=== PATIENT | female | born 1995 | race Two or more races ===

== ENCOUNTER 2019-05-29 06:30 | Inpatient (IN) | payer MEDICAID ==
[2019-05-29] MEDS ORDERED: Sodium Chloride 0.9% 10 ML Syringe FLUSH PRN (09:17)
[2019-05-29] MEDS ORDERED: Carboprost Tromethamine 250 MCG/1 ML Amp IM PRN (09:17)
[2019-05-29] MEDS ORDERED: Water For Irrigation,Sterile 1,000 ML Container IRR PRN (09:17)
[2019-05-29] MEDS ORDERED: Methylergonovine 0.2 MG/1 ML Amp IM PRN (09:17)
[2019-05-29] MEDS ORDERED: Lidocaine 1% 50 ML MDV INJECT PRN (09:17)
[2019-05-29] MEDS ORDERED: Sodium Chloride 0.9% 10 ML SDV IV PRN (09:17)
[2019-05-29] MEDS ORDERED: Sodium Chloride 0.9% 2.5 ML Syringe FLUSH PRN (09:17)
[2019-05-29] MEDS ORDERED: Tranexamic Acid 1,000 MG in Sodium Chloride 0.9% 100 ML IV PRN (09:17)
[2019-05-29] MEDS ORDERED: Misoprostol 200 MCG Tab PO PRN (09:17)
--- NOTE | 2019-05-29 09:22 | PCM.LDHP ---
L&D History of Present Illness - General Date of Service: 05/29/19 Admit Problem/Dx: Patient Status Order with Admit Dx/Problem 05/29/19 06:34 Patient Status [ADT] Routine Admission Diagnosis/Problem Admission Diagnosis/Problem 05/29/19 09:15 23 yo EDC 05/27/2019 40 2/7wks, Hx of 26wk IUFD, A+, RI, GBS neg. NRFHT Source of Information: Patient History Limitations: Reports: No Limitations - History of Present Illness Improves with: Reports: None Worsens with: Reports: None Associated Symptoms: Reports: N - Related Data Allergies/Adverse Reactions: Allergies Allergy/AdvReac Type Severity Reaction Status Date / Time citric acid Allergy Difficulty Verified 05/07/19 16:57 Breathing Home Medications: Home Meds buPROPion [buPROPion XL] 150 mg PO BEDTIME 05/07/19 [History] hydrOXYzine HCl [Atarax] 25 mg PO Q6H PRN 05/07/19 [History] Past Medical History [employer] History: Reports: , Other (See Below) Other OB/BYN History: Abruption at 28 weeks previous - Infectious Disease History Infectious Disease History: Reports: None H&P Review of Systems - Review of Systems: Review Of Systems: See Below General: Reports: No Symptoms HEENT: Reports: No Symptoms Pulmonary: Reports: No Symptoms Cardiovascular: Reports: No Symptoms Gastrointestinal: Reports: No Symptoms Genitourinary: Reports: No Symptoms Musculoskeletal: Reports: No Symptoms Skin: Reports: No Symptoms Psychiatric: Reports: No Symptoms Neurological: Reports: No Symptoms Hematologic/Lymphatic: Reports: No Symptoms Immunologic: Reports: No Symptoms L&D Exam - Exam Exam: See Below - Vital Signs Weight: 92.986 kg - OB Specific Contraction Intensity: Mild Movement: Active Heart Tones: Present Heart Tones per Min: 145 (Cat II tracing) Heart Rate (FHR) Variability: Moderate (6-25 bmp) Presentation: Vertex - Renee Score Renee Score Cervix Position: Posterior Renee Score Consistency: Firm Renee Score Effacement: 51-70% Renee Score Dilation: 1-2 cm Renee Score Infant's Station: -2 Renee Score Total: 4 - Exam General: Alert, Oriented, Cooperative HEENT: Hearing Intact Lungs: Clear to Auscultation, Normal Respiratory Effort Cardiovascular: Regular Rate, Regular Rhythm, Normal S1, Normal S2 GI/Abdominal Exam: Soft, Non-Tender Rectal Exam: Deferred Genitourinary: Normal external exam, Normal bimanual exam, Cervical dilitation. No: Cervical fluid, Vaginal bleeding Back Exam: Normal Inspection, Full Range of Motion Extremities: Normal Inspection, Normal Range of Motion, Non-Tender, No Pedal Edema Skin: Warm, Dry, Intact Neurological: Cranial Nerves Intact, Strength Equal Bilateral, Normal Speech, Normal Tone, Sensation Intact - Problem List (1) Supervision of normal IUP (intrauterine ) in multigravida SNOMED Code(s): 952625058, 340545981, 649839013 ICD Code: Z34.80 - ENCOUNTER FOR SUPRVSN OF NORMAL , UNSP TRIMESTER Status: Acute Priority: High Current Visit: Yes Qualifiers: Trimester: third trimester Qualified Code(s): Z34.83 - Encounter for supervision of other normal , third trimester Problem List Initiated/Reviewed/Updated: Yes Orders Last 24hrs: Active Orders 24 hr Category Date Time Status Patient Status [ADT] Routine ADT 05/29/19 06:34 Active Non Stress Test [RC] PER UNIT ROUTINE Care 05/29/19 06:34 Active Up ad Regi [RC] ASDIRECTED Care 05/29/19 06:34 Active Vaginal Exam [RC] Click to Edit Care 05/29/19 06:34 Active Vital Signs [RC] PER UNIT ROUTINE Care 05/29/19 06:34 Active Resuscitation Status Routine Resus Stat 05/29/19 06:34 Ordered Assessment/Plan Comment:: Admit A: 23 yo EDC 05/27/2019 40 2/7wks, Hx of 26wk IUFD, A+, RI, GBS neg. NRFHT , 145bpm Cat II tracing, Occ ctx, SVE 2-3/70/-2 firm, post, intact P: Admit, pitocin for IOL, NRFHT Dr Murrieta updated
[2019-05-29] MEDS ORDERED: Oxytocin/0.9 % Sodium Chloride 30 UNIT/500 ML BAG IV SCH ×2 (09:30→12:00)
[2019-05-29] MEDS ORDERED: Terbutaline 1 MG/ML SDV SUBCUT PRN (11:55)
[2019-05-29] MEDS: Lactated Ringers 1,000 ML IV SCH ×2 (12:17→16:52)
[2019-05-29] MEDS: Nalbuphine 10 MG/1 ML Vial IVPUSH PRN ×2 (19:01→22:50)
[2019-05-30] MEDS ORDERED: Ropivacaine HCl/PF 100 ML ONE (02:36)
[2019-05-30] MEDS ORDERED: fentaNYL 100 MCG/2 ML SDV ONE (02:36)
--- NOTE | 2019-05-30 03:00 | PCM.PREANE ---
Preanesthetic Assessment - Anesthesia/Transfusion/Family Hx Anesthesia History: Prior Anesthesia Without Reaction Family History of Anesthesia Reaction: No Transfusion History: No Prior Transfusion(s) - Review of Systems General: No Symptoms Pulmonary: No Symptoms Cardiovascular: No Symptoms Gastrointestinal: No Symptoms Neurological: No Symptoms Other: Reports: None - Physical Assessment NPO Status Date: 05/29/19 NPO Status Time: 14:00 Height: 1.63 m Weight: 92.986 kg ASA Class: 1 Mental Status: Alert & Oriented x3 Dentition: Reports: Normal Dentition ROM/Head Extension: Full Lungs: Clear to Auscultation Cardiovascular: Regular Rate - Lab Values: Laboratory Last Values WBC 9.19 K/uL (4.0-11.0) 05/29/19 10:25 RBC 4.95 M/uL (4.30-5.90) 05/29/19 10:25 Hgb 10.6 g/dL (12.0-16.0) L 05/29/19 10:25 Hct 34.2 % (36.0-46.0) L 05/29/19 10:25 MCV 69.1 fL (80.0-98.0) L 05/29/19 10:25 MCH 21.4 pg (27.0-32.0) L 05/29/19 10:25 MCHC 31.0 g/dL (31.0-37.0) 05/29/19 10:25 RDW Std Deviation 38.7 fl (28.0-62.0) 05/29/19 10:25 RDW Coeff of Jesus 16 % (11.0-15.0) H 05/29/19 10:25 Plt Count 183 K/uL (150-400) 05/29/19 10:25 MPV 9.10 fL (7.40-12.00) 05/29/19 10:25 Nucleated RBC % 0.0 /100WBC 05/29/19 10:25 Nucleated RBCs # 0 K/uL 05/29/19 10:25 POC Glucose 101 mg/dL (60-110) 05/29/19 17:17 Blood Type A POSITIVE 05/29/19 10:25 Antibody Screen NEGATIVE 05/29/19 10:25 - Allergies Allergies/Adverse Reactions: Allergies Allergy/AdvReac Type Severity Reaction Status Date / Time citric acid Allergy Rash Verified 05/29/19 10:31 - Acknowledgements Anesthesia Type Planned: Epidural Pt an Appropriate Candidate for the Planned Anesthesia: Yes Alternatives and Risks of Anesthesia Discussed w Pt/Guardian: Yes Pt/Guardian Understands and Agrees with Anesthesia Plan: Yes PreAnesthesia Questionnaire 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: , Other (See Below) Other OB/BYN History: Abruption at 28 weeks previous Psychiatric History: Reports: Anxiety, Depression - Infectious Disease History Infectious Disease History: Reports: None - Past Surgical History Dermatological Surgical History: Reports: Skin Biopsy - SUBSTANCE USE Smoking Status *Q: Former Smoker Tobacco Use Within Last Twelve Months: No Recreational Drug Use History: No - HOME MEDS Home Medications: Home Meds buPROPion [buPROPion XL] 150 mg PO BEDTIME 05/07/19 [History] hydrOXYzine HCl [Atarax] 25 mg PO Q6H PRN 05/07/19 [History] - CURRENT (IN HOUSE) MEDS Current Meds: Current Medications Carboprost Tromethamine (Hemabate Ds) 250 mcg IM ASDIRECTED PRN PRN Reason: Post Hemorrhage Tranexamic Acid 1,000 mg/ (Sodium Chloride) 110 mls @ 660 mls/hr IV ONETIME PRN PRN Reason: Bleeding Lactated Ringer's (Ringers, Lactated) 1,000 mls @ 150 mls/hr IV Q7H [facility] Last Infusion: 05/29/19 20:34 Dose: 150 mls/hr Oxytocin/Sodium Chloride (Oxytocin 30 Unit/500 Ml-Ns) 30 unit in 500 mls @ 500 mls/hr IV TITRATE NADINE Oxytocin/Sodium Chloride (Oxytocin 30 Unit/500 Ml-Ns) 30 unit in 500 mls @ 2 mls/hr IV TITRATE NADINE; Protocol Last Titration: 05/30/19 01:50 Dose: 20 munits/min, 20 mls/hr Lidocaine HCl (Xylocaine 1%) 50 ml INJECT ONETIME PRN PRN Reason: Laceration repair Methylergonovine Maleate (Methergine) 0.2 mg IM ASDIRECTED PRN PRN Reason: Post Hemorrhage Misoprostol (Cytotec) 200 mcg PO ONETIME PRN PRN Reason: Post Hemorrhage Nalbuphine HCl (Nubain) 10 mg IVPUSH Q1H PRN PRN Reason: Pain (severe 7-10) Last Admin: 05/29/19 22:50 Dose: 10 mg Sodium Chloride (Saline Flush) 10 ml FLUSH ASDIRECTED PRN PRN Reason: Keep Vein Open Sodium Chloride (Saline Flush) 2.5 ml FLUSH ASDIRECTED PRN PRN Reason: Keep Vein Open Sodium Chloride (Normal Saline) 10 ml IV ASDIRECTED PRN PRN Reason: IV Use Sterile Water (Sterile Water For Irrigation) 1,000 ml IRR ASDIRECTED PRN PRN Reason: delivery Terbutaline Sulfate (Brethine) 0.25 mg SUBCUT ASDIRECTED PRN PRN Reason: Tacysystole Discontinued Medications Fentanyl (Sublimaze) Confirm Administered Dose 100 mcg .ROUTE .STK-MED ONE Stop: 05/30/19 02:37 Ropivacaine (Naropin 0.2%) Confirm Administered Dose 100 mls @ as directed .ROUTE .STK-MED ONE Stop: 05/30/19 02:37
--- NOTE | 2019-05-30 03:05 | PCM.PRNOTE ---
- Free Text/Narrative Note: Anes Note 0240Patient requests epidural for L&D. Sitting position, level L2-L3, midline approach. Sterile technique, chloraprep to lumbar area. Sterile fenestrated drape applied. Epidural space easily achieved single attempt with ease using JANI technique. JANI at 4 cm, cath threaded 5 cm with ease. Sterile adhesive dressing applied. 0247 Test dose 3 cc 1.5% lido with epi negative 0249 load 10 cc 0.2% ropivicaine with 1 mcg/cc fentanyl in slow divided doses. 0253 pump started same solution at 8 cc hr with 6 cc q 20 min prn bolus. Time with patient [id number] Wade Lin CRNA
[2019-05-30] MEDS: Lactated Ringers 1,000 ML IV SCH ×2 (05:58→10:50)
[2019-05-30] MEDS: Nalbuphine 10 MG/1 ML Vial IVPUSH PRN (13:27)
[2019-05-30] MEDS ORDERED: Lanolin 100% Cream 7 GM Tube TOP PRN (13:39)
[2019-05-30] MEDS ORDERED: Bisacodyl 10 MG Supp RECTAL PRN (13:39)
[2019-05-30] MEDS ORDERED: Acetaminophen 500 MG Tab PO PRN (13:39)
[2019-05-30] MEDS ORDERED: Witch Hazel Medicated Pads 40/Jar TOP PRN (13:39)
[2019-05-30] MEDS ORDERED: Benzocaine/Menthol 20%-0.5% Spray 78 GM Cannister TOP PRN (13:39)
[2019-05-30] MEDS ORDERED: Ibuprofen 400 MG Tab PO PRN (13:39)
--- NOTE | 2019-05-30 13:58 | OR ---
SURGEON: Collin Murrieta MD DATE OF PROCEDURE: This patient is a 23-year-old. She is para 2002 She had a demise of her 1st at 38 weeks. The patient is term. She is admitted for elective induction. She was induced with Pitocin. She progressed rather slowly. She had epidural anesthesia for labor analgesia. However, after 28 hours of labor, she became complete-complete and she was vertex and she was pushing. Maria E Sebastian was in attendance of the delivery, and I was in attendance of the delivery too suspecting that the patient because of the long process of labor, there may be shoulder dystocia. However, Maria E Sebastian delivered the head and sure enough we had anterior right shoulder dystocia. I attempt to sweep the anterior shoulder with my hand was not possible, so I swept my hand behind posteriorly and I was able to deliver the posterior shoulder without any problem and then once the posterior shoulder was delivered, then the anterior shoulder was delivered and the rest of the baby delivered without problem. The fetus did have above 100 heart rate at the time of the delivery and later on cried immediately. The score is not available at this time and the weight is not available. The placenta delivered spontaneous, complete, and intact without any problem. There was no episiotomy done. There was no labial, perineal, or vaginal laceration. The shoulder dystocia was for less than 2- minute period. EDDIE / LEANDRA /[id number] MTDD
[2019-05-30] MEDS: Acetaminophen 500 MG Tab PO PRN ×2 (14:12→22:57)
[2019-05-30] MEDS: Ibuprofen 800 MG Tab PO PRN ×2 (14:12→22:57)
[2019-05-30] MEDS: Docusate Sodium 100 MG Cap PO PRN (14:13)
[2019-05-30] MEDS: oxyCODONE 5 MG Tab PO PRN ×2 (17:59→22:57)
[2019-05-31] MEDS: Acetaminophen 500 MG Tab PO PRN ×2 (04:18→15:41)
--- NOTE | 2019-05-31 08:07 | PCM.DCSUM1 ---
Discharge Summary - Hospital Course Free Text/Narrative:: Discharge home follow up 6 weeks for Diagnosis: Stroke: No Modified Micaela Scale: No Symptoms at All Modified Micaela Scale Score: 0 - Discharge Data Discharge Date: 05/31/19 Discharge Disposition: Home, Self-Care 01 Condition: Good - Discharge Diagnosis/Problem(s) (1) Supervision of normal IUP (intrauterine ) in multigravida SNOMED Code(s): 734921471, 592233800, 285438096 ICD Code: Z34.80 - ENCOUNTER FOR SUPRVSN OF NORMAL , UNSP TRIMESTER Status: Acute Priority: High Current Visit: Yes Qualifiers: Trimester: third trimester Qualified Code(s): Z34.83 - Encounter for supervision of other normal , third trimester (2) (spontaneous vaginal delivery) SNOMED Code(s): 444386427 ICD Code: O80 - ENCOUNTER FOR FULL-TERM UNCOMPLICATED DELIVERY Status: Acute Priority: High Current Visit: No - Patient Instructions Diet: Usual Diet as Tolerated Activity: As Tolerated, No Strenuous Activities, Rest and Relax Today Driving: May Drive Today Showering/Bathing: May Shower Notify Provider of: Fever, Increased Pain, Swelling and Redness, Nausea and/or Vomiting Other/Special Instructions: Discharge home follow up 6 weeks for - Discharge Plan *PRESCRIPTION DRUG MONITORING PROGRAM REVIEWED*: Not Applicable *COPY OF PRESCRIPTION DRUG MONITORING REPORT IN PATIENT ZEESHAN: Not Applicable Prescriptions/Med Rec: Ibuprofen [Motrin] 800 mg PO Q6H PRN #90 tablet PRN Reason: Pain Home Medications: Home Meds buPROPion [buPROPion XL] 150 mg PO BEDTIME 05/07/19 [History] hydrOXYzine HCl [Atarax] 25 mg PO Q6H PRN 05/07/19 [History] Ibuprofen [Motrin] 800 mg PO Q6H PRN #90 tablet 05/31/19 [Rx] - Discharge Summary/Plan Comment DC Time >30 min.: Yes - General Info Date of Service: 05/31/19 Admission Dx/Problem (Free Text: Patient Status Order with Admit Dx/Problem 05/29/19 06:34 Patient Status [ADT] Routine Admission Diagnosis/Problem Admission Diagnosis/Problem 05/29/19 09:15 23 yo EDC 05/27/2019 40 2/7wks, Hx of 26wk IUFD, A+, RI, GBS neg. NRFHT Functional Status: Reports: Pain Controlled, Tolerating Diet, Ambulating, Urinating - Review of Systems General: Reports: No Symptoms HEENT: Reports: No Symptoms Pulmonary: Reports: No Symptoms Cardiovascular: Reports: No Symptoms Gastrointestinal: Reports: No Symptoms Genitourinary: Reports: No Symptoms Musculoskeletal: Reports: No Symptoms Skin: Reports: No Symptoms Neurological: Reports: No Symptoms Psychiatric: Reports: No Symptoms - Patient Data Vitals - Most Recent: Last Vital Signs Temp 36.6 C 05/31/19 04:00 Pulse 95 05/31/19 04:00 Resp 17 05/31/19 04:00 BP 126/69 05/31/19 04:00 Pulse Ox 98 05/31/19 04:00 Weight - Most Recent: 92.986 kg Med Orders - Current: Current Medications Acetaminophen (Tylenol Extra Strength) 500 mg PO Q4H PRN PRN Reason: Pain Acetaminophen (Tylenol Extra Strength) 1,000 mg PO Q4H PRN PRN Reason: Pain Last Admin: 05/31/19 04:18 Dose: 1,000 mg Benzocaine/Menthol (Dermoplast Pain Relief 20%-0.5% [place]) 78 gm TOP ASDIRECTED PRN PRN Reason: Perineal Comfort Measure Last Admin: 05/30/19 14:14 Dose: 78 gm Bisacodyl (Dulcolax) 10 mg RECTAL ONETIME PRN PRN Reason: Constipation Docusate Sodium (Colace) 100 mg PO BID PRN PRN Reason: Constipation Last Admin: 05/30/19 14:13 Dose: 100 mg Emollient Ointment (Lansinoh Hpa) 0 gm TOP ASDIRECTED PRN PRN Reason: Sore Nipples Last Admin: 05/30/19 14:14 Dose: 7 gm Ibuprofen (Motrin) 400 mg PO Q4H PRN PRN Reason: Pain Ibuprofen (Motrin) 800 mg PO Q6H PRN PRN Reason: Pain Last Admin: 05/30/19 22:57 Dose: 800 mg Oxycodone HCl (Oxycodone) 5 mg PO Q2H PRN PRN Reason: Pain Last Admin: 05/30/19 22:57 Dose: 5 mg Witch Jasmin (Tucks) 1 pad TOP ASDIRECTED PRN PRN Reason: comfort care Last Admin: 05/30/19 14:14 Dose: 1 pad Discontinued Medications Carboprost Tromethamine (Hemabate Ds) 250 mcg IM ASDIRECTED PRN PRN Reason: Post Hemorrhage Fentanyl (Sublimaze) Confirm Administered Dose 100 mcg .ROUTE .STK-MED ONE Stop: 05/30/19 02:37 Tranexamic Acid 1,000 mg/ (Sodium Chloride) 110 mls @ 660 mls/hr IV ONETIME PRN PRN Reason: Bleeding Lactated Ringer's (Ringers, Lactated) 1,000 mls @ 150 mls/hr IV Q7H NADINE Last Admin: 05/30/19 10:50 Dose: 150 mls/hr Oxytocin/Sodium Chloride (Oxytocin 30 Unit/500 Ml-Ns) 30 unit in 500 mls @ 500 mls/hr IV TITRATE NADINE Last Admin: 05/30/19 13:32 Dose: 500 mls/hr Oxytocin/Sodium Chloride (Oxytocin 30 Unit/500 Ml-Ns) 30 unit in 500 mls @ 2 mls/hr IV TITRATE NADINE; Protocol Last Titration: 05/30/19 13:18 Dose: 999 munits/min, 999 mls/hr Ropivacaine (Naropin 0.2%) Confirm Administered Dose 100 mls @ as directed .ROUTE .T1 [email or web address] ONE Stop: 05/30/19 02:37 Lidocaine HCl (Xylocaine 1%) 50 ml INJECT ONETIME PRN PRN Reason: Laceration repair Methylergonovine Maleate (Methergine) 0.2 mg IM ASDIRECTED PRN PRN Reason: Post Hemorrhage Misoprostol (Cytotec) 200 mcg PO ONETIME PRN PRN Reason: Post Hemorrhage Nalbuphine HCl (Nubain) 10 mg IVPUSH Q1H PRN PRN Reason: Pain (severe 7-10) Last Admin: 05/30/19 13:27 Dose: 10 mg Sodium Chloride (Saline Flush) 10 ml FLUSH ASDIRECTED PRN PRN Reason: Keep Vein Open Sodium Chloride (Saline Flush) 2.5 ml FLUSH ASDIRECTED PRN PRN Reason: Keep Vein Open Sodium Chloride (Normal Saline) 10 ml IV ASDIRECTED PRN PRN Reason: IV Use Sterile Water (Sterile Water For Irrigation) 1,000 ml IRR ASDIRECTED PRN PRN Reason: delivery Terbutaline Sulfate (Brethine) 0.25 mg SUBCUT ASDIRECTED PRN PRN Reason: Tacysystole - Exam General: Reports: Alert, Oriented, Cooperative Lungs: Reports: Normal Respiratory Effort GI/Abdominal Exam: Soft, Non-Tender (Female) Exam: Deferred, Vaginal Bleeding Rectal (Female) Exam: Deferred Back Exam: Reports: Normal Inspection, Full Range of Motion Extremities: Normal Inspection, Normal Range of Motion, Non-Tender, No Pedal Edema Skin: Reports: Warm, Dry, Intact Neurological: Reports: Normal Gait, Normal Speech, Normal Tone, Strength Equal Bilateral, Sensation Intact Psy/Mental Status: Reports: Alert, Normal Affect, Normal Mood
[2019-05-31] MEDS: Ibuprofen 800 MG Tab PO PRN (08:39)
[2019-05-31] MEDS: Docusate Sodium 100 MG Cap PO PRN (08:40)
--- NOTE | 2019-05-31 09:10 | PCM.POSTAN ---
POST ANESTHESIA ASSESSMENT - MENTAL STATUS Mental Status: Alert - RESPIRATORY Respiratory Status: Respiratory Rate WNL - CARDIOVASCULAR CV Status: Pulse Rate WNL - GASTROINTESTINAL GI Status: No Symptoms - POST OP HYDRATION Hydration Status: Adequate & Stable
--- NOTE | 2019-05-31 09:11 | PCM48HPAN ---
Post Anesthesia Note - EVALUATION WITHIN 48HRS OF ANESTHETIC Vital Signs in Normal Range: Yes Patient Participated in Evaluation: Yes Respiratory Function Stable: Yes Airway Patent: Yes Cardiovascular Function Stable: Yes Hydration Status Stable: Yes Pain Control Satisfactory: Yes Nausea and Vomiting Control Satisfactory: Yes Mental Status Recovered: Yes Resp Rate: 17
[2019-05-31 09:13] VITALS: BP 119/71; PULSE 88
[2019-05-31] MEDS: oxyCODONE 5 MG Tab PO PRN (12:20)
--- NOTE | 2019-05-31 14:02 | US ---
INDICATION: Right lower extremity swelling and pain TECHNIQUE: Ultrasound venous duplex lower right extremity. Compression venous exam was performed using flores-scale, color Doppler, and spectral Doppler imaging. COMPARISON: None FINDINGS: Sonographic imaging demonstrates the right common femoral, deep femoral, superficial femoral, popliteal, posterior tibial and greater saphenous veins to be fully compressible with normal color Doppler blood flow. Right calf edema. IMPRESSION: No evidence of deep venous thrombosis right lower extremity. Right calf edema. Dictated by Pelon Andujar MD @ 05/31/2019 2:00:38 PM Dictated by: Pelon Andujar MD @ 05/31/2019 14:00:44 (Electronically Signed)
== END 2019-05-31 17:10 | disposition home or self-care (01) | DRG 807 ==
LOC: MW.OBCHECK 06:30 → MW.OB 06:31 → MW.OBCHECK 09:16 → MW.OB 09:17 → OBSVTOIN 05-30 13:14 → INTOOBSV 05-30 13:14 → OBSVTOIN 05-30 13:18 → MW.OB 05-30 18:08
PROVIDERS: ADMIT Obstetrics & Gynecology; ATTEND Obstetrics & Gynecology
PROC: 10E0XZZ Delivery of Products of Conception, External Approach (ICD-10-PCS; principal; 2019-05-30)
PROC: 3E0R3BZ Introduction of Anesthetic Agent into Spinal Canal, Percutaneous Approach (ICD-10-PCS; 2019-05-30)
PROC: 3E033VJ Introduction of Other Hormone into Peripheral Vein, Percutaneous Approach (ICD-10-PCS; 2019-05-30)
DX: O48.0 Post-term pregnancy (principal); Z37.0 Single live birth; Z3A.40 40 weeks gestation of pregnancy; O76 Abnormality in fetal heart rate and rhythm complicating labor and delivery
CPT/HCPCS: 01967; 36415; 51702; 59025; 59409; 82962; 85027; 86850; 86900; 86901; 93971-26-RT; 93971-RT; A9270-GY; J2300; J2590; J2795; J3010; J7120

== ENCOUNTER 2022-01-19 14:46 | Emergency (ER) | payer SELFPAY ==
[2022-01-19] MEDS ORDERED: Sodium Chloride 0.9% 1,000 ML IV ONE (14:56)
[2022-01-19 16:00] LABS: BLOOD UREA NITROGEN,BUN 16 mg/dL (7.0-18.0); CARBON DIOXIDE,CO2 25.4 mmol/L (21.0-32.0); CHLORIDE,CL 103 mmol/L (98-107); GLUCOSE RANDOM 101 mg/dL (74-106); POTASSIUM,K 3.5 mmol/L (3.5-5.1); SODIUM,NA 138 mmol/L (136-145)
[2022-01-19 16:12] LABS: CORONAVIRUS COVID-19 NAA NEGATIVE (NEGATIVE); INFLUENZA A NAA NEGATIVE (NEGATIVE); INFLUENZA B NAA NEGATIVE (NEGATIVE)
[2022-01-19 16:36] VITALS: BP 107/72; PULSE 64
== END 2022-01-19 16:36 | disposition home or self-care (01) ==
LOC: MW.ED 14:46
DX: R55 Syncope and collapse (principal); Z20.822 Contact with and (suspected) exposure to COVID-19; Z91.048 Other nonmedicinal substance allergy status
CPT/HCPCS: 0240U; 36415; 80053; 83735; 84703; 85025; 93005; 99284; J7030

== ENCOUNTER 2022-12-23 13:33 | Emergency (ER) | payer BC ==
[2022-12-23 15:04] LABS: CARBON DIOXIDE,CO2 24.8 mmol/L (21.0-32.0); POTASSIUM,K 4.1 mmol/L (3.5-5.1)
[2022-12-23 15:38] VITALS: BP 140/78; PULSE 96
== END 2022-12-23 15:39 | disposition home or self-care (01) ==
LOC: MW.ED 13:33
DX: R55 Syncope and collapse (principal); F41.9 Anxiety disorder, unspecified; F32.A Depression, unspecified; Z79.899 Other long term (current) drug therapy; Z88.8 Allergy status to other drugs, medicaments and biological substances
CPT/HCPCS: 36415; 71045; 71045-26; 80053; 83735; 84443; 84481; 84703; 85025; 93005; 93010; 99283; 99284